=== PATIENT | female | born 1955 | race Caucasian/White ===

== ENCOUNTER → 2017-03-12 | Day surgery (SDC) | payer BC ==
[~2017-03-12] VITALS: Ht 160 cm; Wt 135.3 kg
[~2017-03-12] MED LIST: ACETAMINOPHEN 1000 MG/100 ML VIAL IV ONE; ACETAMINOPHEN/HYDROcodone 325 MG/7.5 MG TAB PO PRN; ALLO100T PO; BUPIVACAINE HCL PF 0.5% 30 ML VIAL ONE; CHLORHEXIDINE GLUCONATE 2 % 1 PACK (2 CLOTHS) TOPICAL PRN; CHLORHEXIDINE GLUCONATE 4% SOLN 120 ML BTL TOPICAL SCH; COLC1TAB15 PO; DO NOT ADM ANY ANTICOAGULANT DRUGS PRN; FAMO40TA PO; FAMOTIDINE 20 MG/2 ML VIAL ONE; GENTAMICIN SULFATE 80 MG/2 ML VIAL ONE; HYDR-3288 PO; INSULIN HUMAN REGULAR 1,000 UNITS/10 ML VIAL SQ PRN; LACTATED RINGER'S 1000 ML INJ 1,000 ML IV ONE; LACTATED RINGER'S 1000 ML IV PRN; LEVO50TA4 PO; METF1000 PO; METO50TA PO; METOPROLOL TARTRATE 25 MG TAB PO PRN; MIDAZOLAM HCL 2 MG/2 ML VIAL ONE; MORPHINE SULFATE 4 MG/ML INJ IV PUSH PRN; MORPHINE SULFATE 8 MG/ML INJ IV PUSH PRN; NEOSTIGMINE 3 MG/3 ML SYR IV ONE; ONDANSETRON HCL 4 MG/2 ML VIAL IV PRN; ONDANSETRON HCL 4 MG/2 ML VIAL IV PUSH ONE; POVIDONE IODINE 5% (ANTISEPSIS KIT) 4 APPLICATIONS EACH NARE PRN; POVIDONE IODINE 7.5% SCRUB 118 ML BOTTLE TOPICAL SCH; PROPOFOL 200 MG/20 ML AMP IV ONE; SIMV40TA PO; SODIUM CHLOR 0.9% 250 ML INJ 250 ML ONE; SODIUM CHLORID 0.9% 500 ML IV PRN; SODIUM CHLORIDE 0.9% FLUSH 10 ML FLUSH IV FLUSH PRN; SODIUM CHLORIDE 0.9% FLUSH 10 ML FLUSH IV FLUSH SCH; VALS1TAB70 PO; VANCOMYCIN HCL 1000 MG VIAL ONE; ceFAZolin 2 GM PREMIX 50 ML IV SCH; ceFAZolin 2 GM PREMIX 50 ML ONE; fentaNYL CITRATE 250 MCG/5 ML AMP ONE
[2017-03-12 10:30] VITALS: BP 159/81; PULSE 73; RESP 18; TEMP 98.5; O2SAT 97
--- NOTE | 2017-03-12 14:54 | PD.OP ---
cc: Todd Gates MD Operative Report Date of Surgery: Mar 12, 2017 Preoperative Diagnosis: Left elbow radial head fracture. Left elbow capitellum fracture. Postoperative Diagnosis: Same Procedure: Left elbow open reduction and internal fixation of capitellum fracture. Left Elbow Open Reduction and Internal Fixation of Radial Head Fracture. Anesthesia: Gen. Surgeon: Todd Gates Rail Track Layer(s): BA Lo[place] The surgical procedure was assisted by my Advanced Registered Nurse Practitioner. My HAIR SPINNER presence was necessary throughout this case for the manipulation and positioning of the surgical extremity. My HAIR SPINNER was assisting me throughout the duration of this procedure. The skill set of an Advance Registered Nurse Practitioner was medically necessary to complete this procedure. During the surgical case, the surgical services director was working at the back table and the Advance Registered Nurse Practitioner was directly assisting me. Operation and Findings: Tourniquet time: 0 minutes at 250 mmHg of pressure Estimated blood loss: 30 cc The patient received intravenous vancomycin and Ancef. After the appropriate anesthesia was administered, the patient's arm was prepped and draped in the usual sterile fashion. Local anesthetic was given with lidocaine and Marcaine. We made standard incision over the lateral aspect of the elbow. We dissected down and made an arthrotomy between the anconeus and extensor carpi ulnaris interval. We identified the radial head fracture. We evacuated hematoma. The radial head fracture was mildly displaced. We identified significant area of the capitellum that had avulsion fractures distally. There were some areas of comminuted bone which were removed. We thoroughly irrigated. We used fluoroscopic guidance to help find the large capitellar fragment which had migrated compared to the x-rays preoperatively. We removed this fragment and observed it. We felt that we could fix this fragment back to the bone as there was a thin but definite intact osseous component to the osteochondral injury. This fragment encompassed proximally half of the capitellum. The overlying cartilage was in good condition. We realigned the fracture in anatomic position and secured this with a Synthes 1.5 headless screw that was buried. We confirm there was no intra-articular penetration. We then anatomically reduced the radial head fracture and fixed this with a 3.0 headless screw with excellent purchase. We confirmed there was no penetration on the other side of the radial head. The patient had full range of motion of the elbow. We thoroughly irrigated the elbow. We closed the capsule with #1 Vicryl. Skin was closed with 2-0 Vicryl followed by 3-0 nylon. A posterior splint was applied. Postoperative plan is to start range of motion between 3 and 6 weeks. The tourniquet was released and hemostasis was achieved. The patient had a 2+ radial pulse. We irrigated the incision thoroughly. We then closed skin with 2 -0 Vicryl followed by 3-0 nylon. The arm was dressed and a volar splint was applied. The postoperative plan is to start [] range of motion of the wrist. Todd Gates MD Mar 12, 2017 14:54
--- NOTE | 2017-03-12 15:12 | RADRPT ---
EXAM DATE/TIME: 03/12/2017 14:35 [facility] COMPARISON: No previous studies available for comparison. INDICATIONS : LEFT ELBOW REDUCTION/FIXATION MEDICAL HISTORY : None. SURGICAL HISTORY : None. ENCOUNTER: Initial ACUITY: 1 day PAIN SCORE: Non-responsive. LOCATION: Left elbow FINDINGS: Hardware is noted within the radial head and lateral humeral condyle. CONCLUSION: 1. Status post ORIF left elbow as described above. Lito Loomis MD on March 12, 2017 at 15:05 Board Certified Radiologist. This report was verified electronically.
[2017-03-12 16:51] VITALS: BP 142/86; PULSE 80; RESP 18; TEMP 97.3; O2SAT 97
--- NOTE | 2017-03-12 22:51 | EKG ---
Date Performed: 03/12/2017 Time Performed: 10:56:56 PTAGE: 61 years EKG: Sinus rhythm LEFT VENTRICULAR HYPERTROPHY AND ST-T CHANGE POSSIBLE LATERAL MYOCARDIAL INFARCTION , PROBABLY OLD A BNORMAL ECG NO PREVIOUS TRACING DOCTOR: Molly Butler Interpretating Date/Time 03/12/2017 22:51:15
== END | disposition home or self-care (01) ==
LOC: HSDC 09:51
PROVIDERS: ATTEND Orthopaedic Surgery
DX: S52.122A Displaced fracture of head of left radius, initial encounter for closed fracture (principal); S42.452A Displaced fracture of lateral condyle of left humerus, initial encounter for closed fracture; E11.9 Type 2 diabetes mellitus without complications; M10.9 Gout, unspecified; Z79.4 Long term (current) use of insulin; E66.01 Morbid (severe) obesity due to excess calories; Z68.43 Body mass index [BMI] 50.0-59.9, adult; W01.0XXA Fall on same level from slipping, tripping and stumbling without subsequent striking against object, initial encounter; Y93.01 Activity, walking, marching and hiking
CPT/HCPCS: 01740; 24579; 24665; 73080; 76000; 93005; C1713; J0131; J0690; J1580; J2250; J2405; J2710; J3010; J3370; J7050; J7120